=== PATIENT | male | born 1960 | race Caucasian/White ===

== ENCOUNTER 2018-01-18 04:47 | Emergency (ER) | payer OTHER ==
[~2018-01-18] VITALS: Ht 165.1 cm; Wt 89.8 kg
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
[2018-01-18] MEDS ORDERED: LOR1 (05:08)
--- NOTE | 2018-01-18 05:54 | RADIOLOGY IMAGING REPORT ---
FACILITY: [facility] [place] PATIENT NAME: Gregorio Salas : 1960 MR: [id number] V: [id number] EXAM DATE: ORDERING PHYSICIAN: SARITA SHABAZZ TECHNOLOGIST: [place] [facility] [place] Gregorio Sal[place] : 1960 Visit/Account:[id number] Date of Sevice: 01/18/2018 LEFT LOWER LEG: Indication: Injury. Technique: AP and lateral views were obtained. Comparison: None. Findings: There is no evidence of fracture, dislocation, or other acute deformity. 2 surgical anchors are present in the distal fibula. There is no widening or subluxation of the ankle joint. The skelet al structures are otherwise unremarkable. No focal soft tissue deformity is identified. IMPRESSION: No acute deformity. Report Dictated By: Anthony Vanessa MD at 01/18/2018 5:47 AM Report E-Signed By: Anthony Vanessa MD at 01/18/2018 5:50 AM WSN:[id number]
--- NOTE | 2018-01-18 05:57 | RADIOLOGY IMAGING REPORT ---
FACILITY: [facility] PATIENT NAME: Gregorio Salas : 1960 MR: [id number] V: [id number] EXAM DATE: ORDERING PHYSICIAN: SARITA SHABAZZ TECHNOLOGIST: Location: [facility] Patient: Gregorio Salas : 1960 Visit/Account:[id number] Date of Sevice: 01/18/2018 Left ribs: Indication: Injury. Technique: 2 views were obtained. Comparison: None. Findings: There is a minimally displaced fracture at the anterior end of the left seventh rib. The sk eletal structures are otherwise intact, as visualized. There is normal mineralization. No focal soft tissue deformity is evident. Impression: Acute fracture of the left seventh rib. Report Dictated By: Anthony Vanessa MD at 01/18/2018 5:50 AM Report E-Signed By: Anthony Vanessa MD at 01/18/2018 5:54 AM WSN:[id number]
--- NOTE | 2018-01-18 05:59 | RADIOLOGY IMAGING REPORT ---
FACILITY: [facility] - [place] PATIENT NAME: Gregorio Salas : 1960 MR: [id number] V: [id number] EXAM DATE: ORDERING PHYSICIAN: SARITA SHABAZZ TECHNOLOGIST: Location: [facility] [place] Patient: Gregorio Salas : 1960 Visit/Account:[id number] Date of Sevice: 01/18/2018 SHOULDER: Indication: Injury. Technique: 2 views were obtained. Comparison: None. Findings: There is no evidence of fracture, subluxation, or other acute deformity. There is uniform m ineralization of the skeletal structures. No periarticular calcifications or soft tissue abnormalitie s are identified. IMPRESSION: Negative left shoulder. Report Dictated By: Anthony Vanessa MD at 01/18/2018 5:54 AM Report E-Signed By: Anthony Vanessa MD at 01/18/2018 5:54 AM WSN:[id number]
--- NOTE | 2018-01-18 06:00 | RADIOLOGY IMAGING REPORT ---
FACILITY: [facility] [place] PATIENT NAME: Gregorio Salas : 1960 MR: [id number] V: [id number] EXAM DATE: ORDERING PHYSICIAN: SARITA SHABAZZ TECHNOLOGIST: Location: [facility] Patient: Gregorio Salas : 1960 Visit/Account:[id number] Date of Sevice: 01/18/2018 CHEST: Indication: Injury. Technique: 2 views were obtained. Comparison: None. Skeletal and soft tissue structures: Unremarkable, as visualized. Heart and mediastinum: Within normal limits. Lung sarmiento: There is minimal linear opacity at the left base, compatible with atelectasis. The lungs are otherwise clear. Pleural spaces: No evidence of pneumothorax or effusion. Impression: Minimal linear atelectasis at the left base. Report Dictated By: Anthony Vanessa MD at 01/18/2018 5:55 AM Report E-Signed By: Anthony Vanessa MD at 01/18/2018 5:56 AM WSN:[id number]
[2018-01-18] MEDS ORDERED: APAP/HYDROCODONE 325/5 TAB PO ONE (06:15)
[2018-01-18] MEDS ORDERED: ACET/HYDROC 5/325MG TH ER ONLY 2 TAB/BOTTLE PO ONE (06:15)
[2018-01-18] MEDS ORDERED: IBUPROFEN 800 MG TAB PO ONE (06:15)
[2018-01-18] MEDS ORDERED: LOR5/325 PO (06:16)
[2018-01-18 06:28] VITALS: BP 164/100
== END 2018-01-18 06:38 | disposition home or self-care (01) ==
LOC: ER 04:55
DX: S22.32XA Fracture of one rib, left side, initial encounter for closed fracture (principal); S80.12XA Contusion of left lower leg, initial encounter; S40.012A Contusion of left shoulder, initial encounter; V68.1XXA Passenger in heavy transport vehicle injured in noncollision transport accident in nontraffic accident, initial encounter
CPT/HCPCS: 71046; 71100; 99283